=== PATIENT | female | born 1955 | race Caucasian/White ===

== ENCOUNTER 2017-03-01 12:18 | Emergency (ER) | payer OTHER ==
[~2017-03-01] VITALS: Ht 152.4 cm; Wt 88.0 kg
[2017-03-01 13:07] VITALS: BP 130/85
--- NOTE | 2017-03-01 15:00 | NUR ---
PT PUT TO OF 1 FROM [facility]. PT AMBULATED.
--- NOTE | 2017-03-01 15:07 | NUR ---
AWAITING FOR DISPOSITION IN OVERFLOW
[2017-03-01 15:09] VITALS: BP 135/76
--- NOTE | 2017-03-01 16:01 | NUR ---
ERMD WAITING FOR RAPID STREP.RESULTS
--- NOTE | 2017-03-01 16:01 | NUR ---
PATIENT IN NO DISTRESS
--- NOTE | 2017-03-01 16:30 | NUR ---
PATIENT ELOPED W/O PRESCRIPTION AND DISCHARGE INSTRUCTIONS.ERMD MADE AWARE
== END 2017-03-01 16:30 | disposition left against medical advice (07) ==
LOC: MED 12:18
DX: J02.9 Acute pharyngitis, unspecified (principal); S80.212A Abrasion, left knee, initial encounter; E11.9 Type 2 diabetes mellitus without complications; I10 Essential (primary) hypertension; M81.0 Age-related osteoporosis without current pathological fracture; W18.30XA Fall on same level, unspecified, initial encounter; Y93.89 Activity, other specified; Y92.89 Other specified places as the place of occurrence of the external cause; Y99.8 Other external cause status
CPT/HCPCS: 82948; 87081; 99284